=== PATIENT | female | born 1990 | race African-American/Black ===

== ENCOUNTER 2017-02-13 21:07 | Emergency (ER) | payer OTHER ==
[2017-02-13 21:09] VITALS: BP 148/86; PULSE 79; RESP 16; TEMP 98.9; O2SAT 100
--- NOTE | 2017-02-14 00:06 | PD ---
HPI Chief Complaint: ENT Complaint Time Seen by Provider: 00:00 Travel History International Travel<30 days: No Contact w/Intl Traveler<30days: No Traveled to known affect area: No History of Present Illness HPI 26-year-old female here with decreased hearing in the left ear and left ear pain. She has had decreased hearing the left ear for several days, pain developing today. Pain is an aching pain which is constant. She tried putting olive oil in her ear but the symptoms persisted. Denies cough or congestion, recent travel, recent swimming, ear drainage, sore throat. She has no other complaints. [facility] Social History Alcohol Use: No Tobacco Use: No Allergies-Medications (Allergen,Severity, Reaction): Coded Allergies: No Known Allergies (Verified , 04/30/15) Reported Meds & Prescriptions Reported Meds & Active Scripts Active Floxin Otic (Ofloxacin Otic) 0.3 % Dorcas 10 Drop LEFT EAR BID 10 Days Debrox Otic Drops (Carbamide Peroxide Otic Drops) 6.5% Soln 5-10 Drop EACH EAR BID 10 Days up to 4 days. Review of Systems Except as stated in HPI: all other systems reviewed are Neg Physical Exam Narrative GENERAL: Well-nourished female in no acute distress SKIN: Warm and dry. HEAD: Atraumatic. Normocephalic. EYES: Pupils equal and round. No scleral icterus. No injection or drainage. ENT: No nasal bleeding or discharge. Mucous membranes pink and moist. Cerumen impaction left ear. NECK: Trachea midline. No JVD. CARDIOVASCULAR: Regular rate and rhythm. No murmur appreciated. RESPIRATORY: No accessory muscle use. Clear to auscultation. Breath sounds equal bilaterally. Data Data Last Documented VS Vital Signs Date Time Temp Pulse Resp B/P (MAP) Pulse Ox O2 Delivery O2 Flow Rate FiO2 02/13/17 21:09 98.9 79 16 148/86 (106) 100 Orders Orders Ear Irrigation (02/14/17 00:05) Lidocaine Pf 1% Inj (Xylocaine-Mpf 1% In (02/14/17 00:45) Lidocaine 1% Inj (50 Ml) (Xylocaine 1% I (02/14/17 00:46) Lidocaine 1% Inj (50 Ml) (Xylocaine 1% I (02/14/17 01:00) MDM Medical Decision Making Medical Screen Exam Complete: Yes Emergency Medical Condition: Yes Medical Record Reviewed: Yes Differential Diagnosis Cerumen impaction, foreign body, otitis media, otitis externa, perforated tympanic membrane Narrative Course The patient appears to have a large cerumen impaction in left ear canal. Some ear wax was irrigated out with persistent cerumen impaction. Some lidocaine mixture was irrigated and the left ear canal as well. Ear curet was used to break up some of the cerumen as well. The patient has persistent cerumen impaction. Therefore she will be discharged with Debrox as well as ofloxacin otic solution. Recommended follow-up with primary care in 1 week for repeat ear irrigation. Diagnosis Primary Impression: Impacted cerumen, left ear Additional Instructions: Use the medication as prescribed. Follow-up with primary care physician in one week. Return for any emergent medical conditions. Med/Other Pt SpecificInfo: Prescription(s) given Scripts Ofloxacin Otic (Floxin Otic) 0.3 % Dorcas 10 DROP LEFT EAR BID for Infection for 10 Days, #1 BOTTLE 0 Refills Prov: Anita Narayan DO 02/14/17 Carbamide Peroxide Otic Drops (Debrox Otic Drops) 6.5% Soln 5-10 DROP EACH EAR BID for 10 Days, #1 BOTTLE 0 Refills up to 4 days. Prov: Anita Narayan DO 02/14/17 Disposition: 01 DISCHARGE HOME Condition: Stable Will Thornton Feb 14, 2017 00:06
[2017-02-14] MEDS ORDERED: LIDOCAINE HCL 1% PF 30 ML VIAL INFIL ONE (00:45)
[2017-02-14] MEDS ORDERED: LIDOCAINE HCL 1% 50 ML VIAL ONE (00:46)
[2017-02-14] MEDS ORDERED: LIDOCAINE HCL 1% 50 ML VIAL INFIL ONE (01:00)
[2017-02-14] MEDS ORDERED: CARB6.5S5 EACH EAR (01:19)
[2017-02-14] MEDS ORDERED: OFLO1SOL LEFT EAR (01:19)
[2017-02-14 02:30] VITALS: BP 157/89
== END 2017-02-14 02:41 | disposition home or self-care (01) ==
LOC: NEPD 21:07
DX: H61.22 Impacted cerumen, left ear (principal)
CPT/HCPCS: 69210